=== PATIENT | female | born 1995 | race Caucasian/White ===

== ENCOUNTER → 2019-12-19 15:10 | Outpatient (BNVA) | payer BC, SELFPAY | PROVIDERS: Family Provider Nurse Practitioner Family; Visit Provider Nurse Practitioner Family | DX: Z11.59 Encounter for screening for other viral diseases (principal); Z20.828 Contact with and (suspected) exposure to other viral communicable diseases | CPT/HCPCS: 87635 ==

== ENCOUNTER 2021-06-14 15:40 | Emergency (ER) | payer SELFPAY ==
[2021-06-14 16:07] VITALS: BP 126/82; PULSE 99; RESP 16; TEMP 37; O2SAT 97
--- NOTE | 2021-06-14 16:39 | XRR_ITS ---
PROCEDURE INFORMATION: Exam: XR Chest Exam date and time: 06/14/2021 4:58 PM Age: 26 years old Clinical indication: Pain; Angina pectoris; Additional info: Chest pain TECHNIQUE: Imaging protocol: XR of the chest. Views: 2 views. COMPARISON: No relevant prior studies available. FINDINGS: Lungs: Unremarkable. No consolidation. Pleural spaces: Unremarkable. No pleural effusion. No pneumothorax. Heart/Mediastinum: Unremarkable. No cardiomegaly. Bones/joints: Unremarkable. XR/XR chest 2V* [id number] IMPRESSION: No acute findings.
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
[2021-06-14] MEDS: acetaminophen 500 mg Tablet PO (17:12)
== END 2021-06-14 17:19 | disposition home or self-care (01) ==
PROVIDERS: Emergency Provider Emergency Medicine
DX: M25.561 Pain in right knee (principal); R07.9 Chest pain, unspecified; V43.52XA Car driver injured in collision with other type car in traffic accident, initial encounter
CPT/HCPCS: 71046; 73560; 99283

== ENCOUNTER 2024-12-10 23:29 | Emergency (ER) | payer SELFPAY ==
--- OUTSIDE RECORDS SUMMARY | 2024-12-10 23:36 | XMS_ITS | Clinical Summary ---
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 Active loratadine (CLARITIN) 10 mg Oral tablet Take 10 mg by mouth daily. 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 Gender Identity Not on file Sexual Orientation Not on file Last Filed Vital Signs Vital Sign Reading Time Taken Comments Blood Pressure 110/60 08/08/2012 2:02 PM CDT Pulse 76 08/08/2012 2:02 PM CDT Temperature 37 C (98.6 F) 08/08/2012 2:02 PM CDT Respiratory Rate 20 08/08/2012 2:02 PM CDT Oxygen Saturation - - Inhaled Oxygen Concentration - - Weight 50.8 kg (112 lb) 08/08/2012 2:02 PM CDT Height 169.5 cm (5' 6.75 ) 08/08/2012 2:02 PM CD T Body Mass Index 17.67 08/08/2012 2:02 PM CDT Plan of Treatment Health Maintenance Due Date Last Done Comments DTAP/TDAP/TD VACCINES (1 - Tdap) 01/20/2016 HEPATITIS B VACCINES (1 of 3 - 19+ 3-dose series) 01/04 CERVICAL CANCER SCREENING 2018 HPV/Cotest (21-29) 2018 PAP SMEAR 2018 HPV VACCINES (1 - 3-dose SCDM series) 01/20/2024 INFLUENZA VACCINE (#1) 2024 Insurance BS BS
[2024-12-10 23:37] VITALS: PULSE 114; RESP 20; TEMP 36.6; O2SAT 99; BMI 20.9
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
[2024-12-11 00:41] VITALS: BP 114/62; PULSE 92; RESP 14; O2SAT 98
[2024-12-11 01:05] VITALS: BP 114/62; PULSE 87; RESP 18; O2SAT 99
== END 2024-12-11 01:07 | disposition home or self-care (01) ==
PROVIDERS: Emergency Provider Physician Assistant
DX: S60.512A Abrasion of left hand, initial encounter (principal); S90.31XA Contusion of right foot, initial encounter; S16.1XXA Strain of muscle, fascia and tendon at neck level, initial encounter; V89.2XXA Person injured in unspecified motor-vehicle accident, traffic, initial encounter
CPT/HCPCS: 70450; 72125; 73130; 73630; 99284